=== PATIENT | female | born 1980 | race Caucasian/White ===

== ENCOUNTER 2017-07-05 14:43 | Inpatient (IN) | payer OTHER ==
[2017-07-05 15:18] VITALS: BP 136/82
[2017-07-05 15:36] LABS: BASOPHIL (%) 0.4 % (0-1); BASOPHIL COUNT 0.1 K/uL (0-0.1); EOSINOPHIL (%) 0.8 % (0-5); EOSINOPHIL COUNT 0.1 K/uL (0-0.3); HEMATOCRIT 33.4 % (36.0-46.0); HEMOGLOBIN 11.4 G/DL (11.9-15.5); IMMATURE GRANULOCYTE (%) 0.6 % (0.0-0.7); LYMPHOCYTE (%) 13.3 % (15-42); LYMPHOCYTE COUNT 1.8 K/uL (1.0-2.8); MCH 28.4 PG (29.0-34.0); MCHC 34.1 G/DL (30.0-36.0); MCV 83.1 FL (83-99); MONOCYTE (%) 5.5 % (3-12); MONOCYTE COUNT 0.7 K/uL (0-0.8); NEUTROPHIL (%) 79.4 % (45-76); NEUTROPHIL COUNT 10.6 K/uL (1.8-6.4); PLATELET COUNT 295 K/uL (156-360); RBC DIS.WIDTH-CV 13.2 % (11.8-14.6); RBC DIS.WIDTH-SD 39.8 % (39-53); RED BLOOD COUNT 4.02 M/uL (3.80-5.20); WHITE BLOOD COUNT 13.4 K/uL (4.1-10.2)
[2017-07-05 16:41] LABS: AMPHETAMINE NEGATIVE (500 ng/mL); BARBITURATES NEGATIVE (200 ng/mL); BENZODIAZEPINES NEGATIVE (150 ng/mL); BUPRENORPHINE NEGATIVE (10 ng/mL); COCAINE NEGATIVE (150 ng/mL); METHADONE NEGATIVE (200 ng/mL); METHAMPHETAMINE NEGATIVE (500 ng/mL); OPIATES (MORPHINE) NEGATIVE (100 ng/mL); OXYCODONE NEGATIVE (100 ng/mL); PHENCYCLIDINE NEGATIVE (25 ng/mL); PROPOXYPHENE NEGATIVE (300 ng/mL); THC CANNABINOIDS NEGATIVE (50 ng/mL); TRICYCLIC ANTIDEPRESSANTS NEGATIVE (300 ng/mL)
[2017-07-05 17:58] VITALS: BP 136/78
[2017-07-05 19:18] VITALS: BP 117/77
[2017-07-05 20:27] VITALS: BP 129/79
[2017-07-05 21:48] VITALS: BP 101/56
[2017-07-05 23:01] VITALS: BP 116/77
[2017-07-06] VITALS (28 sets, daily range): BP systolic 113–159; BP diastolic 63–91
[2017-07-06] MEDS ORDERED: IBUPROFEN800 MG PO (13:28)
[2017-07-07 08:00] VITALS: BP 105/65
[2017-07-07 14:41] VITALS: BP 130/65
[2017-07-08 07:49] VITALS: BP 133/74
== END 2017-07-08 15:15 | disposition home or self-care (01) | DRG 775 ==
LOC: LDRP-OP 14:43 → 2WEST 14:45 → LDRP-OP 08-11 15:20
PROVIDERS: Midwife
PROC: 0UQMXZZ Repair Vulva, External Approach (ICD-10-PCS; principal; 2017-07-06)
PROC: 10E0XZZ Delivery of Products of Conception, External Approach (ICD-10-PCS; principal; 2017-07-06)
PROC: 3E0S3BZ Introduction of Anesthetic Agent into Epidural Space, Percutaneous Approach (ICD-10-PCS; 2017-07-06)
PROC: 00HU33Z Insertion of Infusion Device into Spinal Canal, Percutaneous Approach (ICD-10-PCS; 2017-07-06)
DX: O99.214 Obesity complicating childbirth (principal); O70.0 First degree perineal laceration during delivery; O63.1 Prolonged second stage (of labor); E66.9 Obesity, unspecified; Z37.0 Single live birth; Z3A.39 39 weeks gestation of pregnancy; O12.04 Gestational edema, complicating childbirth; O62.4 Hypertonic, incoordinate, and prolonged uterine contractions; Z68.39 Body mass index [BMI] 39.0-39.9, adult
CPT/HCPCS: 80306 90; 85025; C1755; G0378; J0595; J7120